=== PATIENT | female | born 2000 | race Caucasian/White ===

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

== ENCOUNTER → 2021-03-25 08:00 | Outpatient (CLI) | payer BC, SELFPAY ==
[2021-03-27 23:18] LABS: Neisseria gonorrhoeae, NAA Negative (Negative)
== END ==
PROVIDERS: Visit Provider Nurse Practitioner Obstetrics & Gynecology
DX: Z72.51 High risk heterosexual behavior (principal)
CPT/HCPCS: 87491; 87591

== ENCOUNTER → 2021-07-21 16:52 | Outpatient (CLI) | payer BC, SELFPAY ==
[2021-07-23 23:08] LABS: Neisseria gonorrhoeae, NAA Negative (Negative)
== END ==
PROVIDERS: Visit Provider Nurse Practitioner Obstetrics & Gynecology
DX: Z72.51 High risk heterosexual behavior (principal)
CPT/HCPCS: 87491; 87591

== ENCOUNTER → 2021-08-11 15:27 | Outpatient (CLI) | payer BC, SELFPAY ==
[2021-08-14 09:14] LABS: Neisseria gonorrhoeae, NAA Negative (Negative)
== END ==
PROVIDERS: Visit Provider Nurse Practitioner Obstetrics & Gynecology
DX: Z72.51 High risk heterosexual behavior (principal)
CPT/HCPCS: 87491; 87591

== ENCOUNTER → 2022-08-11 10:48 | Outpatient (CLI) | payer BC, SELFPAY ==
[2022-08-12 11:14] LABS: HIV Screen 4th Generation wRfx Non Reactive (Non Reactive)
[2022-08-13 21:08] LABS: Neisseria gonorrhoeae, NAA Negative (Negative)
[2022-08-14 21:30] LABS: Hepatitis C Antibody <0.1
== END ==
PROVIDERS: PCP Internal Medicine Adolescent Medicine; Visit Provider Nurse Practitioner Obstetrics & Gynecology
DX: Z20.2 Contact with and (suspected) exposure to infections with a predominantly sexual mode of transmission (principal); Z11.4 Encounter for screening for human immunodeficiency virus [HIV]
CPT/HCPCS: 36415; 86703; 87380; 87491; 87591; G0432

== ENCOUNTER → 2023-01-08 13:29 | Outpatient (CLI) | payer BC, SELFPAY ==
[2023-01-08 14:14] LABS: Basophils % 0.4 % (0.1-2.0); Eosinophils # 0.4 K/mm3 (0.0-0.4); Eosinophils % 3.9 % (0.1-12.0); Hematocrit 43.4 % (37.0-47.0); Hemoglobin 14.3 g/dL (12.2-16.2); Lymphocytes # 2.7 K/mm3 (0.7-4.5); Lymphocytes % 26.8 % (10-50); Mean Corpuscular Hemoglobin 29.4 pg (27.0-31.2); Mean Corpuscular Volume 89.2 fl (81-99); Mean Platelet Volume 7.8 fl (7.4-10.4); Monocytes # 0.5 K/mm3 (0.1-1.0); Neutrophils # 6.3 K/mm3 (1.8-7.8); Neutrophils % 63.9 % (37.0-80.0); Platelet Count 250 K/mm3 (142-424); Red Blood Count 4.86 M/mm3 (4.20-5.40); Red Cell Distribution Width 13.3 % (11.5-17.5); White Blood Count 9.9 K/mm3 (4.8-10.8)
[2023-01-08 14:38] LABS: HCG Qualitative, Serum Negative (Negative)
[2023-01-08 16:29] LABS: Alanine Aminotransferase 17 U/L (12-78); Albumin Level 4.6 g/dl (3.5-5.0); Albumin/Globulin Ratio 1.7 (1.1-1.8); Alkaline Phosphatase 56 U/L (38-126); Anion Gap 13.5 mEq/L (5-15); Aspartate Amino Transferase 29 U/L (14-36); Bilirubin,Total 0.5 mg/dl (0.2-1.3); Blood Urea Nitrogen 10 mg/dl (7-17); Calcium 9.2 mg/dl (8.4-10.2); Carbon Dioxide 24 mmol/L (22.0-30.0); Chloride 105 mmol/L (98-107); Estimated Glomerular Filt Rate 106 ml/min (>60); GFR (African American) 128 ML/MIN (>60); Globulin 2.7 g/dL (1.3-3.2); Glucose 80 mg/dl (74-100); Potassium 4.5 mmoL/L (3.5-5.1); Sodium 138 mmol/L (136-145); Total Protein,Serum 7.3 g/dl (6.3-8.2)
[2023-01-08 16:55] LABS: Thyroid Stimulating Hormone 1.23 uIU/mL (0.465-4.68)
[2023-01-08 17:10] LABS: Erythrocyte Sedimentation Rate 5 mm/hr (0-20)
[2023-01-10 10:26] LABS: Rapid Plasma Reagin Ab Titer Non Reactive (NonRea<1:1)
[2023-01-11 16:20] LABS: Treponema pallidum Ab (FTA-ABS Non Reactive (Non Reactive)
[2023-01-11 22:35] LABS: Neisseria gonorrhoeae, NAA Negative (Negative)
== END ==
LOC: LAB 13:30
PROVIDERS: PCP Internal Medicine Adolescent Medicine; Visit Provider Physician Assistant
DX: R21 Rash and other nonspecific skin eruption (principal); Z72.51 High risk heterosexual behavior
CPT/HCPCS: 36415; 80053; 84443; 84703; 85025; 85651; 86593; 86780; 87491; 87591

== ENCOUNTER 2025-03-08 14:48 | Outpatient (CLI) | payer OTHER, SELFPAY ==
--- OUTSIDE RECORDS SUMMARY | 2025-03-12 09:16 | XMS_ITS | Clinical Summary ---
Author Organization [facility] Address [address] [place] [address] Care Team Providers Care Communications Marketing Intern Name Role Phone Provider, No Known Primary Care Provider Unavail able Allergies Active Allergy Reactions Criticality Noted Date Comments Penicillins Hives 07/17/2021 Medications Etonogestrel (Nexplanon) 68 MG implant subdermal implant Inject 1 each into the appropriate area of the skin as directed by provider 1 (One) Time. Active Social History Tobacco Use Types Packs/Day Years Used Date Smoking Tobacco: Never Smokeless Tobacco: Never Alcohol Use Standard Drinks/Week Comments Never 0 (1 standard drink = 0.6 oz pur e alcohol) Abuse Screen Answer Date Recorded Unsafe at Home or Work/School Not on file Feels Threatened by Someone? Not on file 03/2023 Does Anyone Keep You from Co ntacting Others or Doint Things Outside the Home? Not on file 04/12/2023 Physical Sign of Abuse Present Not on file 1 Housing Stability Answer Date Recorded Current Living Arrangements Not on file 03/2023 Potentially Unsafe Housing Conditions Not on andrew e 04/12/2023 Family and Community Support Answer Zak e Recorded Help with Day-to-Day Activities Not on file 04/12/2023 Lonely or Isolated Not on file 04/12/2023 Employment Answer Date Recorded Do you want help finding or keeping work or a ruby b? Not on file 04/12/2023 Disabilities Answer Date Recorded Concentrating, Remembering, or Making Decisions Difficulty Not on file 04/12/2023 Doing Errands Independently Difficulty Not on fi le 04/12/2023 Education Answer Date Recorded Help with school or training? Not on file Preferred Language Not on file 04/12/2023 Comments No Sex and Gender Information Value Date Recorded Sex Assigned at Not on file Legal Sex Female 11:52 AM EDT Gender Identity Not on file Sexual Orientation Not on file Last Filed Vital Signs Vital Sign Reading Time Taken Comments Blood Pressure 123/79 09/21/2022 2:15 PM EDT Pulse 94 09/21/2022 2:15 PM EDT Temperature 36.3 C (97.3 F) 09/21/2022 2:15 PM EDT Respiratory Rate 16 09/21/2022 2:15 PM EDT Oxygen Saturation 98% 09/21/2022 2:15 PM EDT Inhaled Oxygen Concentration - - Weight 65.8 kg (145 lb) 09/21/2022 2:15 PM EDT Height 170.2 cm (5' 7 ) 09/21/2022 2:15 PM EDT Body Mass Index 22.71 09/21/2022 2:15 PM EDT Plan of Treatment Health Maintenance Due Date Last Done Comments ANNUAL PHYSICAL 2001 Annual Gynecologic Pelvic an d Breast Exam 2001 HEPATITIS C SCREENING 2001 MENINGOCOCCAL B VACCINE (1 o f 2 - Standard) 2017 HPV VACCINES (2 - 3-dose series) 07/15/2018 06/17/20 18 TDAP/TD VACCINES (1 - Tdap) 2020 COVID-19 Vaccine ( - 2023-2 5 season) 2025 INFLUENZA VACCINE 04/04/2025 Pneumococcal Vaccine 0-49 Aged Out No longer eligible based on patient's age to complete this topic Insurance EMPLOYEE Care Teams Communications Marketing Intern Relationship Specialty Start Date End Date Provider, [place] [address] PCP - General 07/17/21
== END 2025-03-08 23:59 ==
LOC: LAB.DROPOF 03-12 09:02
PROVIDERS: PCP Obstetrics & Gynecology; Visit Provider Obstetrics & Gynecology
DX: Z72.51 High risk heterosexual behavior (principal); Z86.19 Personal history of other infectious and parasitic diseases
CPT/HCPCS: 87491; 87529; 87591; 87661; 87798; 87801